=== PATIENT | female | born 1960 | race Caucasian/White ===

== ENCOUNTER 2021-11-04 08:04 | Emergency (ER) | payer OTHER ==
[~2021-11-04 08:04] MED LIST: BENTYL10 MG PO; COZAAR50 MG PO; CRESTOR5 MG PO; ELIQUIS5 MG PO; FLOMAX0.4 MG PO; HCTZ12.5 MG PO; LEXAPRO20 MG PO; LOPRESSOR25 MG PO; METFORMIN HCL500 MG PO; NORCO 5-325 TA1 EACH PO; OTEZLA30 MG PO
== END 2021-11-04 09:13 | disposition home or self-care (01) ==
LOC: FER 08:04
DX: R04.0 Epistaxis (principal); Z86.73 Personal history of transient ischemic attack (TIA), and cerebral infarction without residual deficits